=== PATIENT | female | born 1985 | race African-American/Black ===

== ENCOUNTER 2025-02-24 12:25 | Emergency (ER) | payer BC, MEDICAID ==
[~2025-02-24] VITALS: Ht 160 cm; Wt 72.0 kg
[2025-02-24 12:38] VITALS: O2SAT 96
[2025-02-24] MEDS: DEXAMETHASONE 4MG/ML 1ML VIAL IM ONE (13:26)
[2025-02-24] MEDS ORDERED: CLINDAMYCIN 600 MG in DEXTROSE 5% WATER 50 ML IV ONE (14:00)
[2025-02-24] MEDS: CEFTRIAXONE 1GM/50ML 50 ML IV ONE (14:50)
[2025-02-24] MEDS: SODIUM CHLORIDE 0.9% 1,000 ML IV ONE (14:50)
[2025-02-24] MEDS: KETOROLAC 15MG/ML VIAL IV ONE (14:50)
[2025-02-24] MEDS: DEXAMETHASONE 4MG/ML 1ML VIAL IV ONE (14:50)
[2025-02-24] MEDS: ACETAMINOPHEN 650MG/20.3ML UDC PO ONE (14:58)
[2025-02-24] MEDS: CLINDAMYCIN 600MG PREMIX 50 ML IV NR (15:07)
[2025-02-24 15:12] LABS: BASOPHILS % 0.5 % (0.0-2.0); EOSINOPHILS % 0.3 % (0.0-5.0); HEMATOCRIT. 34.5 % (36.0-48.0); HEMOGLOBIN. 11.5 g/dL (12.0-16.0); LYMPHOCYTES % 9.6 % (20.0-50.0); MEAN CORPUSCULAR HEMOGLOBIN 30.2 pg (28.0-32.0); MEAN CORPUSCULAR HGB CONC 33.3 g/dL (31.0-37.0); MEAN CORPUSCULAR VOLUME 90.7 fL (81.0-99.0); MEAN PLATELET VOLUME 8.8 fl (7.4-10.4); MONOCYTES % 8.9 % (2.0-8.0); NEUTROPHILS % 80.7 % (40.0-76.0); PLATELET 311 x1000/uL (130-400); RED BLOOD CELL COUNT 3.81 mill/uL (4.2-5.4); RED CELL DISTRIBUTION WIDTH 13.8 % (11.6-14.6); WHITE BLOOD COUNT 16.4 x1000/uL (4.5-11.0)
[2025-02-24 15:19] LABS: CARBON DIOXIDE 30 mEq/L (21-32); CHLORIDE 96 mEq/L (98-107); POTASSIUM 3.1 mEq/L (3.5-5.1); SODIUM 140 mEq/L (136-145)
[2025-02-24 15:20] LABS: CALCIUM 9.7 mg/dL (8.7-10.4)
[2025-02-24 15:25] LABS: CREATININE 0.7 mg/dL (0.6-1.0); GLUCOSE 97 mg/dL (70-105)
[2025-02-24 15:26] LABS: UREA NITROGEN BLOOD 13 mg/dL (9-23)
[2025-02-24 15:27] LABS: HCG SCREEN NEGATIVE
[2025-02-24] MEDS: TETRACAINE/BENZOCAINE/BUTAMBEN 20 GM SPRAY MM NR (17:01)
[2025-02-24] MEDS ORDERED: CLIN-194 MT (17:05)
[2025-02-24] MEDS ORDERED: TOPUD PO (17:05)
[2025-02-24] MEDS ORDERED: IBUP-2029 MT (17:05)
[2025-02-24] MEDS ORDERED: METH4TAB95 MT (17:05)
[2025-02-24] MEDS ORDERED: IOHEXOL-300 100 ML BOTTLE ONE ×2 (17:19→23:30)
[2025-02-24 17:30] VITALS: BP 111/66; PULSE 112; RESP 13; TEMP 38.6; O2SAT 97
[2025-02-26] MEDS ORDERED: FAMO-134 MT (13:57)
[2025-02-26] MEDS ORDERED: P20 MT (13:57)
== END 2025-02-24 19:19 | disposition home or self-care (01) ==
LOC: ER 12:25
DX: J36 Peritonsillar abscess (principal); Z79.899 Other long term (current) drug therapy; Z88.0 Allergy status to penicillin; Y04.0XXA Assault by unarmed brawl or fight, initial encounter; Y93.89 Activity, other specified; Y92.89 Other specified places as the place of occurrence of the external cause; Y99.8 Other external cause status
CPT/HCPCS: 80048; 84703; 87430; 83605; 85025; 87040; 87070; 87205; 87077; 36415; 70486; 70491; 42700; 96367; 96365; 96366; 96375; 99291; Q9967; J0696; J1100; J1885; J3490; J7030; Z7610 ×3; J7060

== ENCOUNTER 2025-03-01 11:45 | Emergency (ER) | payer BC, MEDICAID ==
[~2025-03-01] VITALS: Ht 160 cm; Wt 70.0 kg
[~2025-03-01 11:45] MED LIST: CLIN-194 MT; FAMO-134 MT; IBUP-2029 MT; P20 MT; TOPUD PO
[2025-03-01 11:51] VITALS: O2SAT 98
[2025-03-01 12:17] LABS: BASOPHILS % 0.3 % (0.0-2.0); EOSINOPHILS % 0.4 % (0.0-5.0); HEMATOCRIT. 35.1 % (36.0-48.0); HEMOGLOBIN. 11.6 g/dL (12.0-16.0); LYMPHOCYTES % 13.6 % (20.0-50.0); MEAN CORPUSCULAR HEMOGLOBIN 29.7 pg (28.0-32.0); MEAN CORPUSCULAR HGB CONC 33.1 g/dL (31.0-37.0); MEAN CORPUSCULAR VOLUME 89.7 fL (81.0-99.0); MEAN PLATELET VOLUME 8.7 fl (7.4-10.4); MONOCYTES % 5.7 % (2.0-8.0); PLATELET 477 x1000/uL (130-400); RED BLOOD CELL COUNT 3.92 mill/uL (4.2-5.4); RED CELL DISTRIBUTION WIDTH 13.5 % (11.6-14.6); WHITE BLOOD COUNT 16.5 x1000/uL (4.5-11.0)
[2025-03-01 12:23] LABS: CHLORIDE 101 mEq/L (98-107); POTASSIUM 3.5 mEq/L (3.5-5.1); SODIUM 136 mEq/L (136-145)
[2025-03-01 12:24] LABS: CARBON DIOXIDE 25 mEq/L (21-32)
[2025-03-01 12:25] LABS: CALCIUM 9.4 mg/dL (8.7-10.4)
[2025-03-01 12:29] LABS: CREATININE 0.6 mg/dL (0.6-1.0); GLUCOSE 122 mg/dL (70-105); UREA NITROGEN BLOOD 15 mg/dL (9-23)
[2025-03-01 12:59] VITALS: TEMP 36.5
[2025-03-01] MEDS: IBUPROFEN 600MG TABLET PO ONE (13:24)
[2025-03-01 13:33] LABS: CLARITY URINE CLOUDY (CLEAR); COLOR URINE YELLOW (YELLOW); GLUCOSE URINE NEGATIVE (NEGATIVE); KETONES URINE TRACE (NEGATIVE); LEUKOCYTE ESTERASE URINE 1+ (NEGATIVE); NITRITE URINE NEGATIVE (NEGATIVE); OCCULT BLOOD URINE TRACE (NEGATIVE); PH URINE 6.5 (4.5-8.0); PROTEIN URINE TRACE (NEGATIVE); SPECIFIC GRAVITY URINE 1.022 (1.005-1.030); UROBILINOGEN URINE 0.2 E.U./dL (0.2-1.0)
[2025-03-01 13:47] LABS: BACTERIA URINE 1+; MUCUS URINE 1+ /lpf (< = 2+); SQUAMOUS EPITHELIAL CELL URINE 3+ /lpf (RARE/1+)
[2025-03-01 13:48] LABS: RBC URINE NONE SEEN /hpf (0-2)
[2025-03-01] MEDS ORDERED: IBUP-2029 MT (16:38)
[2025-03-01] MEDS ORDERED: NITR100C MT (16:38)
[2025-03-01] MEDS ORDERED: CEFTRIAXONE SODIUM 1G VIAL IM NR (16:45)
[2025-03-01] MEDS: CEFTRIAXONE SODIUM 1G VIAL IM ONE (17:09)
[2025-03-01 21:17] VITALS: BP 112/74; PULSE 80; RESP 12; O2SAT 100
== END 2025-03-01 17:17 | disposition home or self-care (01) ==
LOC: ER 12:04
DX: M54.50 Low back pain, unspecified (principal); D72.829 Elevated white blood cell count, unspecified; D75.839 Thrombocytosis, unspecified; N39.0 Urinary tract infection, site not specified; Z98.890 Other specified postprocedural states; Z88.0 Allergy status to penicillin; Z79.899 Other long term (current) drug therapy
CPT/HCPCS: 99284; 80048; 81003; 81025; 83605; 85025; 36415; 72100; 96372; J0696